=== PATIENT | female | born 1950 | race African-American/Black ===

== ENCOUNTER 2024-01-17 11:56 | Emergency (ER) | payer MEDICARE ==
[~2024-01-17] VITALS: Ht 182.9 cm; Wt 98.0 kg
[2024-01-17 12:19] VITALS: BP 195/71; PULSE 75; RESP 16; TEMP 98.3; O2SAT 99
[2024-01-17] MEDS ORDERED: OXYM30SP26 BOTHNSTRLS (15:39)
== END 2024-01-17 17:24 | disposition home or self-care (01) ==
LOC: ER 12:46
DX: R04.0 Epistaxis (principal); I10 Essential (primary) hypertension; I25.2 Old myocardial infarction; Z98.890 Other specified postprocedural states
CPT/HCPCS: 99281